=== PATIENT | male | born 1975 | race Caucasian/White ===

== ENCOUNTER 2018-10-24 14:01 | Emergency (ER) | payer SELFPAY ==
[~2018-10-24] VITALS: Ht 172.7 cm; Wt 122.7 kg
--- NOTE | 2018-10-24 14:13 | ERD ---
ER Documentation Chief Complaint Chief Complaint cp HPI The patient is a 43-year-old male, presenting to the ER because of substernal chest discomfort. He has an axillary lipoma for more than 7 years, he thinks that the lipoma is is bothering him and causing chest discomfort. He complains of intermittent substernal chest discomfort around 2 AM this morning with palpitation, lasting only seconds and went away by itself. He went to the clinic, who gave him 2 asa 81 mg and sent to the ER. EMS gave him 2 asa 81 mg and 2 ntg spray he denies chest pain with vomiting/radiation/exertion/diaphoresis, dyspnea, abdominal pain, vomiting, dysuria, diarrhea.. He does not smoke nor drink Past medical history: GERD Past surgical history: None ROS All systems reviewed and are negative except as per history of present illness. Medications Home Meds Active Scripts Ibuprofen* (Motrin*) 600 Mg Tab, 600 MG PO Q6H PRN for PAIN AND OR ELEVATED TEMP, #30 TAB Prov:FELIPA AVILA MD 10/24/18 Reported Medications Omeprazole* (Prilosec*) 10 Mg Suspdr.pkt, 10 MG PO AC BREAKFAST, PKT 10/24/18 Aspirin* (Aspirin* EC) 81 Mg Tablet.dr, 81 MG PO DAILY, TAB 10/24/18 Allergies Allergies: Coded Allergies: No Known Allergy (Unverified , 10/24/18) Physical Exam Vitals Vital Signs Date Temp Pulse Resp B/P (MAP) Pulse Ox O2 O2 Flow FiO2 Time Delivery Rate 10/24/18 88 16 125/80 100 Room Air 18:33 (95) 10/24/18 93 17 153/91 100 Room Air 16:54 (111) 10/24/18 106 17 130/72 100 Room Air 15:11 (91) 10/24/18 98.6 70 18 138/85 100 14:29 (102) Physical Exam Const: No acute distress. Head: Atraumatic. Eyes: Normal Conjunctiva. ENT: Normal External Ears, Nose and Mouth. Neck: Full range of motion. No meningismus. Resp: Clear to auscultation bilaterally. Cardio: Regular rate and rhythm. Abd: Soft, non distended, normal bowel sounds, non tender. Skin: No petechiae or rashes. Back: No midline or flank tenderness. Ext: No cyanosis, or edema. Neur: Awake and alert. No focal deficit Psych: Normal Mood and Affect. Result Diagram: 10/24/18 1520 10/24/18 1520 Results 24 hrs Laboratory Tests Test 10/24/18 15:20 10/24/18 18:45 White Blood Count 10.4 10^3/ul Red Blood Count 5.27 10^6/ul Hemoglobin 14.4 g/dl Hematocrit 44.7 % Mean Corpuscular Volume 84.8 fl Mean Corpuscular Hemoglobin 27.3 pg Mean Corpuscular Hemoglobin Concent 32.2 g/dl Red Cell Distribution Width 13.4 % Platelet Count 246 10^3/UL Mean Platelet Volume 12.0 fl Immature Granulocytes % 0.500 % Neutrophils % 70.6 % Lymphocytes % 21.9 % Monocytes % 5.9 % Eosinophils % 0.6 % Basophils % 0.5 % Nucleated Red Blood Cells % 0.0 /100WBC Immature Granulocytes # 0.050 10^3/ul Neutrophils # 7.4 10^3/ul Lymphocytes # 2.3 10^3/ul Monocytes # 0.6 10^3/ul Eosinophils # 0.1 10^3/ul Basophils # 0.1 10^3/ul Nucleated Red Blood Cells # 0.0 10^3/ul D-Dimer 241.00 ng/ml D-Dimer Comment Sodium Level 140 mmol/L Potassium Level 4.0 mmol/L Chloride Level 102 mmol/L Carbon Dioxide Level 28 mmol/L Anion Gap 10 Blood Urea Nitrogen 8 mg/dl Creatinine 0.98 mg/dl Est Glomerular Filtrat Rate mL/min > 60 mL/min Glucose Level 113 mg/dl Calcium Level 9.3 mg/dl Troponin I < 0.012 ng/ml < 0.012 ng/ml Current Medications Medications Dose Sig/Shakira Start Time Status Last (Trade) Ordered Route PRN Stop Time Admin Dose Reason Admin Ketorolac 30 mg ONCE STAT 10/24/18 DC 10/24/18 Tromethamine IV 17:05 17:13 (Toradol) 10/24/18 17:12 Ketorolac 30 mg STK-MED 10/24/18 DC Tromethamine ONCE .ROUTE 17:09 (Toradol) 10/24/18 17:10 Lidocaine 10 ml ONCE ONCE 10/24/18 DC (Xylocaine INJ 19:30 1% (Mpf)) 10/24/18 19:31 Procedures/MDM [place] [id number] Radiology Main Line: [phone] DIAGNOSTIC IMAGING REPORT Patient: CRISTOBAL HERMAN : 1975 Age: 43 Sex: M MR #: [id number] DOS: 10/24/18 1457 Ordering MD: FELIPA AVILA MD Location: E/R Room/Bed: PROCEDURE: XR Chest. CLINICAL INDICATION: chest pain TECHNIQUE: Single frontal view of the chest was obtained COMPARISON: None FINDINGS: The heart and mediastinum are within normal limits. The lungs are clear. There is no pleural effusion or pneumothorax. RPTAT: AA IMPRESSION: No acute disease. .Evan Malik MD, MD Date Time Electronically viewed and signed by .Evan Malik MD, MD on 10/24/2018 15:28 .S/ CC: FELIPA AVILA MD [phone] EKG: at 2:12 pm Read by emergency physician Rate/Rhythm: ST 107 beats/min QRS, ST, T-waves: No ST elevation, no T inversion, LAE Impression: Abnormal EKG EKG: At 3:32 PM read by emergency physician Rate/Rhythm: Normal Sinus Rhythm 95 beats/min QRS, ST, T-waves: No ST elevation, no T inversion Impression: Normal EKG MEDICAL MAKING DECISION: The patient is a 43-year-old male, presenting with acute chest pain, was treated with Toradol 30 mg IV for pain with good response. I do not suspect acute ACS The differential diagnoses considered include but are not limited to acute coronary syndrome, acute myocardial infarction, pericarditis, pulmonary embolism, aortic dissection, pneumonia, pleural effusion, pneumothorax, GERD, chest wall pain. The patient presents with chest pain and I considered pulmonary embolism, aortic dissection, pneumothorax among other diagnoses. Evaluation for acute coronary syndrome was performed. The HEART score (www.mdcalc.com) was utilized for risk stratification and found to be <= 3. Repeat EKG and troponin @ 3 hours were unchanged. Based on this evaluation the patients risk of major adverse cardiac events is <1%. Shared decision making occurred with patient and the decision has been made to discharge the patient for outpatient evaluation and functional study within 72 hours. Departure Diagnosis: Primary Impression: Chest pain Additional Impression: Lipoma Condition: Good Comments The patient's blood pressure was elevated (>120/80) but appears stable without evidence of hypertension emergency or urgency. The patient was counseled about the risks of hypertension and urged to pursue outpatient monitoring and therapy within a week with their primary care physician. He was discharged with Alli I discussed the findings with the patient. I advised the patient to follow-up with the primary physician and surgery Dr Rice for lipoma in about 2-3 days, sooner if needed and return if any concern. Disclaimer: Inadvertent spelling and grammatical errors are likely due to EHR/dictation software use and do not reflect on the overall quality of patient care. Also, please note that the electronic time recorded on this note does not necessarily reflect the actual time of the patient encounter. FELIPA AVILA MD Oct 24, 2018 14:13
[2018-10-24 14:29] VITALS: Ht 172.7 cm; Wt 122.7 kg
[2018-10-24] MEDS ORDERED: OMEP10SU2 PO (14:52)
[2018-10-24] MEDS ORDERED: ASPI-817 PO (14:52)
[2018-10-24] MEDS ORDERED: KETOROLAC 30 MG INJ IV STA (17:05)
[2018-10-24] MEDS ORDERED: KETOROLAC 30 MG INJ ONE (17:09)
[2018-10-24 18:33] VITALS: BP 125/80; PULSE 88; RESP 16
[2018-10-24] MEDS ORDERED: LIDOCAINE 1% (MPF) 5 ML VIAL INJ ONE (19:30)
[2018-10-24] MEDS ORDERED: IBUP-1542 PO (19:37)
== END 2018-10-24 19:50 | disposition home or self-care (01) ==
LOC: E/R 14:01
DX: R07.9 Chest pain, unspecified (principal); D17.9 Benign lipomatous neoplasm, unspecified
CPT/HCPCS: 71045; 80048; 84484; 85025; 85378; 93005; J1885; 36415; 96374